=== PATIENT | male | born 1995 | race Asian ===

== ENCOUNTER 2021-04-01 14:59 | Emergency (ER) | payer BC ==
[~2021-04-01] VITALS: Ht 167.6 cm; Wt 73.6 kg
--- NOTE | 2021-04-01 16:07 | REP ---
INDICATION: head injury COMPARISON: None. TECHNIQUE: Axial noncontrast images from the skull base to the vertex with coronal reformations. This CT examination was performed using the following dose reduction techniques: Automated exposure control, adjustment of mA and/or kv according to the patient's size, and use of iterative reconstruction technique. FINDINGS: The ventricles, sulci, and cisterns are normal in position and appearance. Knapp-white differentiation is maintained. No acute intracranial hemorrhage, mass/mass effect, pathology or trauma/injury. No evidence for acute infarction. No extra-axial fluid collection. Calvarium is intact. Paranasal sinuses and mastoid air cells are clear. IMPRESSION: Normal noncontrast head CT. No evidence for acute intracranial pathology or trauma/injury. <Electronically signed by Shaquille Nguyen > 04/01/21 [id number]
[2021-04-01 18:18] VITALS: BP 129/67
== END 2021-04-01 18:21 | disposition home or self-care (01) ==
LOC: M ED 14:59
DX: S06.0X0A Concussion without loss of consciousness, initial encounter (principal); W50.0XXA Accidental hit or strike by another person, initial encounter; Y92.9 Unspecified place or not applicable; Y93.89 Activity, other specified; Y99.9 Unspecified external cause status